=== PATIENT | male | born 1950 | race American Indian/Alaskan Native ===

== ENCOUNTER 2017-08-25 13:43 | Outpatient (CLI) | payer MEDICARE, OTHER ==
--- NOTE | 2017-08-25 14:11 | XRay Report ---
Left knee: Pain. Standing views demonstrates normal alignment of the knee joint. The joint spaces appear equal but suspicious of being slightly narrowed. The articular surfaces are smooth with a small tibial periarticular spur in the lateral compartment. Articular spurs are present at the patellofemoral articulation with marked retropatellar narrowing laterally. Subchondral cysts are present at the lateral articulation involving both femur and patella. No swelling or effusion noted. Impression: 1. Suspect mild narrowing of the medial and lateral compartments. 2. 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
== END 2017-08-25 13:44 | disposition home or self-care (01) ==
LOC: SPVIMAG 13:43
PROVIDERS: ATTEND Orthopaedic Surgery Sports Medicine
DX: M17.12 Unilateral primary osteoarthritis, left knee (principal); M25.862 Other specified joint disorders, left knee

== ENCOUNTER 2019-04-14 05:46 | Day surgery (SDC) | payer MEDICARE, OTHER ==
[~2019-04-14 05:46] MED LIST: ANCEF/STERILE WATER 2 GM/20 ML 2 GM/20 ML SYRINGE IV NR
[2019-04-14] MEDS ORDERED: LACTATED RINGERS 1,000 ML IV SCH (06:00)
[2019-04-14] MEDS ORDERED: NACL BACTERIOSTATIC INFILTRATI ONE (06:45)
[2019-04-14] MEDS ORDERED: XYLOCAINE 1% 20 mL ONE (07:21)
[2019-04-14] MEDS ORDERED: MARCAINE 0.25% INFILTRATI ONE ×2 (07:21→07:35)
[2019-04-14] MEDS ORDERED: DECADRON ONE (07:21)
--- NOTE | 2019-04-14 07:21 | Anesthesia Consultation ---
Anesthesia Consult and Med Hx Date of service: 04/14/19 - Airway Anesthetic Teeth Evaluation: Edentulous ROM Head & Neck: Adequate Mental/Hyoid Distance: Adequate Mallampati Class: Class II Intubation Access Assessment: Probably Good - Pre-Operative Health Status ASA Pre-Surgery Classification: ASA2 Proposed Anesthetic Plan: MAC - Pulmonary Hx Smoking: Yes (STOPPED 2009) Hx Sleep Apnea: No (SANCHEZ PRE SCREEN HIGH RISK) - Cardiovascular System Hx Hypertension: Yes (X 10 YRS) - Central Nervous System Hx Back Pain: Yes (arthritis) - Other Systems Hx Cancer: No
--- NOTE | 2019-04-14 07:21 | Anesthesia Day of Surgery ---
Anesthesia Day of Surgery - Day of Surgery Patient Examined: Yes Patient H&P Reviewed: Yes Patient is NPO: Yes
[2019-04-14] MEDS ORDERED: PEPCID IV ONE (07:25)
[2019-04-14] MEDS ORDERED: VERSED ONE (07:25)
[2019-04-14] MEDS ORDERED: ANTIBIOTIC OINT TP ONE ×2 (07:26→08:00)
[2019-04-14] MEDS ORDERED: DILAUDID ONE (07:30)
[2019-04-14] MEDS ORDERED: DIPRIVAN 10 MG/ML IV ONE (07:30)
[2019-04-14] MEDS ORDERED: XYLOCAINE MPF 2% ONE (07:31)
[2019-04-14] MEDS ORDERED: XYLOCAINE 1%/ EPI 1:100,000 INFILTRATI ONE (07:35)
[2019-04-14] MEDS ORDERED: DECADRON IM ONE (08:08)
--- NOTE | 2019-04-14 08:55 | XRay Report ---
LEFT FOOT RADIOGRAPHS INDICATION: Foot pain. Exostectomy of left big toe. COMPARISON: None similar. FINDINGS: AP, lateral and oblique left foot radiographs demonstrate grossly intact bony articulation. No focal suspicious erosions. Osteopenia/osteoporosis. Absent/nonvisualized tip/tuft of distal phalanx of second toe, presumed iatrogenic. Small plantar calcaneal spur. Distal tibia/fibular old healed deformity. Grossly unremarkable soft tissues. CONCLUSION: No acute radiographic abnormality with few incidental findings, as above. Please correlate. Thank you for the opportunity to participate in this patient's care.
[2019-04-14 09:19] VITALS: BP 128/69
--- NOTE | 2019-04-14 09:40 | Post Anesthesia Evaluation ---
- Post Anesthesia Evaluation Patient Participated: Yes Airway Patent: Yes Stable Respiratory Function: Yes Nausea/Vomiting: No Temp > 96.8F: Yes Pain Manageable: Yes Adequeate Hydration: Yes Anesthesia Complications: No
--- NOTE | 2019-04-14 18:00 | Operative Report ---
PREOPERATIVE DIAGNOSIS: Exostosis hallux, left. POSTOPERATIVE DIAGNOSIS: Exostosis hallux, left. SURGICAL PROCEDURE: Hallux arthroplasty, removal of bone and soft tissue, left great toe. SURGEON: Dr. Segundo Harris. ANESTHESIA: Local with monitored anesthesia care. TOURNIQUET: Pneumatic ankle tourniquet. DESCRIPTION OF PROCEDURE: At this time, the patient was placed on the operating table in the supine position. Following intravenous sedation, the patient was given 2 grams of Ancef prophylactically. Let it be noted, a well-padded pneumatic ankle tourniquet was placed on the left leg approximately 2-3 cm proximal to the medial and lateral malleoli. Let it be noted, the patient had an old injury, soft tissue injury that was well healed. Therefore, extra padding was placed at the affected area. At this time, after clearance from anesthesia, 6 mL of 1:1 mixture of 1% Xylocaine plain plus 0.25% Marcaine plain was infiltrated into the affected toe after cleansing with alcohol. At this time after adequate local anesthesia, the foot was then scrubbed, prepped and draped in the usual aseptic manner. An Esmarch was used to exsanguinate the tourniquet to 200 mmHg. At this time, attention was directed to the medial aspect of the left great toe in which there was hypertrophy tissue noted and was removed without incident with a 10 blade. At this time, after adequate removal of nonviable tissue, 2 cm incision was made deep and bluntly down to the level of the hallux interphalangeal joint in which there was noted to be exostosis medially and dorsally at the affected area. With the use of a bone saw, a 2 mm wedge was removed dorsally and medially from the infected area and contoured with a rotating football bur. At this time, a rasp was used to contour all sharp edges. The area was flushed copiously with normal sterile saline. Tissue will be sent to the laboratory/pathology for identification. At this time, after thoroughly flushing the infected area, deep closure was performed with 4.0 Vicryl followed by subcutaneous closure with 4.0 Vicryl and subcuticularly with 4.0 Prolene horizontal stitches. A 1 mL of dexamethasone phosphate was infiltrated into the affected area and was dressed with bacitracin ointment, Adaptic, sterile compressive dressing and the tourniquet was deflated with a prompt hyperemic response to the affected area. The patient tolerated the procedure and anesthesia well. The patient will be discharged home with both written and oral postoperative instructions and postop surgical shoe. The patient tolerated the procedure well. JOB# [id number] TLAlireza/NTS
== END 2019-04-14 09:45 | disposition home or self-care (01) ==
LOC: OR 05:46
PROVIDERS: ATTEND Podiatrist Foot & Ankle Surgery
DX: M89.8X8 Other specified disorders of bone, other site (principal); I10 Essential (primary) hypertension; F41.9 Anxiety disorder, unspecified; Z87.891 Personal history of nicotine dependence; Z79.899 Other long term (current) drug therapy; Z98.49 Cataract extraction status, unspecified eye; Z98.890 Other specified postprocedural states; Z91.81 History of falling
CPT/HCPCS: 28108; 73630; 88305; J0690; J1100; J1170; J2250; J2704; J7120; 88304

== ENCOUNTER 2020-04-02 10:44 | Outpatient (CLI) | payer MEDICARE, OTHER ==
--- NOTE | 2020-04-02 12:06 | Ultrasound Report ---
ULTRASOUND THYROID INDICATION / CLINICAL INFORMATION: Thyromegaly. COMPARISON: CT neck with contrast dated 02/05/2009 FINDINGS: RIGHT LOBE: Size = 4.5 x 1.6 x 1.7 cm. - Echogenicity: Normal. - Vascularity: Normal. - Nodules < 1 cm: None. - Nodules >= 1 cm or Suspicious Nodules: None. LEFT LOBE: Size = 4.4 x 1.9 x 1.8 cm. - Echogenicity: Normal. - Vascularity: Normal. - Nodules < 1 cm: 3 mm cyst is noted near the superior pole - Nodules >= 1 cm or Suspicious Nodules: A 1.3 cm peripherally calcified nodule is noted in the mid l eft thyroid lobe. This appears grossly unchanged since a CT neck with contrast performed in 2008. ISTHMUS: No significant abnormality. Thickness = 0.2 cm. - Nodules < 1 cm: None. - Nodules >= 1 cm or Suspicious Nodules: None. LYMPH NODES: No abnormal lymph nodes. PARATHYROID GLANDS: No abnormal parathyroid gland. ADDITIONAL FINDINGS: None. IMPRESSION: The thyroid gland is within normal limits of size. A 1.3 cm peripherally calcified nodule is noted in the mid left thyroid lobe which appears grossly un changed since the CTA neck and 2008. 3 mm benign-appearing cyst near the superior pole of the left thyroid lobe. Note: Nodule size based on mean (average) size of 3 dimensions. Note: Nodules < 1 cm do not typically require follow-up or FNA unless there are suspicious features ( CELESTE, 2015) ACR TI-RADS Thyroid Nodule Recommendations TI-RADS 1 (0 points) -- Benign. No FNA or follow-up. TI-RADS 2 (1-2 points) -- Not suspicious. No FNA or follow-up. TI-RADS 3 (3 points) -- Mildly suspicious. Follow up in 1 year if 1.5 cm. FNA if 2.5 cm. TI-RADS 4 (4-6 points) -- Moderately suspicious. Follow up in 1 year if 1.0 cm. FNA if 1.5 cm. TI-RADS 5 (7+ points) -- Highly suspicious. Follow up in 1 year if 0.5 cm. FNA if 1.0 cm. Signer Name: Oc Wallace Jr, MD Signed: 04/02/2020 12:02 PM Workstation Name: [id number]
== END 2020-04-02 10:45 | disposition home or self-care (01) ==
LOC: SPVWC 10:44
PROVIDERS: ATTEND Internal Medicine
DX: E04.1 Nontoxic single thyroid nodule (principal)
CPT/HCPCS: 76536